=== PATIENT | male | born 1985 | race Caucasian/White ===

== ENCOUNTER 2017-06-13 23:24 | Emergency (ER) | payer OTHER ==
[~2017-06-13 23:24] MED LIST: ACET500T68 PO; LANI SUBQ; NOVOLOG SUBQ; ONDA4TAB PO; PROM-110 PO
[2017-06-13 23:28] VITALS: BP 141/89
--- NOTE | 2017-06-13 23:32 | ER Report ---
History and Physical Time Seen By MD: 23:27 HPI/ROS CHIEF COMPLAINT: Sore throat HISTORY OF PRESENT ILLNESS: 32-year-old male ill for 3 days with rhinitis and a cough now severe sore throat. He is worried he may have strep pharyngitis. Patient's a type I diabetic, insulin-dependent. Patient states his sugars have been okay. Patient notes no nausea or vomiting. He notes no fevers. REVIEW OF SYSTEMS: Respiratory: No cough, no dyspnea. Cardiovascular: No chest pain, no palpitations. Gastrointestinal: No vomiting, no abdominal pain. Musculoskeletal: No back pain. Allergies: Coded Allergies: No Known Drug Allergies (Unverified , 12/18/14) Home Meds Reported Medications Insulin Aspart (NOVOLOG) 100 Unit/Ml Soln, 100 UNIT SUBQ Q4H 06/08/13 Discontinued Reported Medications Insulin Glargine (LANTUS) 100 Unit/Ml Soln, 26 UNIT SUBQ HS 06/08/13 Discontinued Scripts Promethazine Hcl (PROMETHAZINE HCL) 25 Mg Tablet, 25 MG PO Q4H Y for NAUSEA/ VOMITING, #20 TAB Prov:DAVIDE TEIXEIRA DO 12/18/14 Ondansetron (ZOFRAN ODT) 4 Mg Tab.rapdis, 4 MG PO Q6H Y for NAUSEA/VOMITING, #12 Prov:DAVIDE TEIXEIRA DO 12/18/14 Reviewed Nurses Notes: Yes Old Medical Records Reviewed: Yes Hx Smoking: No Smoking Status: Never Smoker Hx Substance Use Disorder: No Hx Alcohol Use: Yes Constitutional Vital Sign - Last 24 Hours 06/13/17 06/13/17 06/13/17 06/13/17 23:27 23:28 23:39 23:44 Temp 97.5 Pulse 77 80 82 Resp 18 B/P (MAP) 141/89 (106) 141/89 Pulse Ox 95 95 94 O2 Delivery Room Air 06/13/17 06/13/17 06/13/17 06/14/17 23:49 23:54 23:59 00:04 Pulse 84 85 79 Pulse Ox 95 96 94 95 06/14/17 06/14/17 00:14 00:19 Pulse 83 Pulse Ox 96 94 Physical Exam General Appearance: The patient is alert, has no immediate need for airway protection and no current signs of toxicity. Vital signs stable, afebrile, pulse ox normal HEENT: Pupils equal and round no injection. TMs normal, oropharynx with moderate redness, mild tonsillar hypertrophy, no exudate Respiratory: Chest is non tender, lungs are clear to auscultation. Cardiac: regular rate and rhythm Gastrointestinal: Abdomen is soft and non tender, no masses, bowel sounds normal. Musculoskeletal: Neck: Neck is supple and non tender. No lymphadenopathy Extremities have full range of motion and are non tender. Skin: No rashes or lesions. DIFFERENTIAL DIAGNOSIS: After history and physical exam differential diagnosis was considered for viral syndrome, strep pharyngitis, sinusitis, otitis media, bronchitis, pneumonia Medical Decision Making Data Points Laboratory Hematology Test 06/13/17 23:31 Group A Streptococcus Screen Negative (NEGATIVE) Chemistry Test 06/13/17 23:31 Group A Streptococcus Screen Negative (NEGATIVE) ED Course/Re-evaluation ED Course Patient was minute to an examination room. H&P was done. The pharyngeal diagnoses was considered. On clinical examination. Patient has an erythematous throat with tonsillar hypertrophy. There is no exudate. A rapid strep is performed which is negative. The results are discussed with the patient. He is advised symptomatic treatment for his viral syndrome. Patient advised to watch his blood sugars closely. Patient advised to follow-up with primary care if unimproved in 3-5 days. Decision to Disposition Date: Jun 14, 2017 Decision to Disposition Time: 00:12 Depart Departure Latest Vital Signs Vital Signs Date Time Temp Pulse Resp B/P (MAP) Pulse Ox O2 Delivery O2 Flow Rate FiO2 06/14/17 00:19 94 06/14/17 00:14 83 06/13/17 23:28 97.5 18 141/89 Room Air Impression: Primary Impression: Viral upper respiratory infection Additional Impression: Insulin dependent diabetes mellitus Condition: Improved Disposition: HOME OR SELF-CARE Patient Instructions: Upper Respiratory Infection (ED) Additional Instructions: Use [id number] medicines for symptomatically management of your upper respiratory infection Follow-up with your primary care if unimproved in 3-5 days. Problem Qualifiers DAVIDE TEIXEIRA DO Jun 13, 2017 23:32
== END 2017-06-14 00:15 | disposition home or self-care (01) ==
LOC: ER 23:38
DX: J06.9 Acute upper respiratory infection, unspecified (principal); E10.9 Type 1 diabetes mellitus without complications
CPT/HCPCS: 87081; 87880; 99283